=== PATIENT | female | born 1970 | race Caucasian/White ===

== ENCOUNTER 2019-02-07 11:53 | Emergency (ER) | payer MEDICARE, OTHER ==
[~2019-02-07] VITALS: Ht 170.2 cm; Wt 77.3 kg
[2019-02-07] MEDS ORDERED: HYDR-4061 PO (12:17)
[2019-02-07] MEDS ORDERED: VALA500T38 PO (12:17)
[2019-02-07] MEDS ORDERED: TRAZ-220 PO (12:17)
[2019-02-07] MEDS ORDERED: TRAM50TA4 PO (12:17)
[2019-02-07] MEDS ORDERED: DOCU250C91 PO (12:17)
[2019-02-07] MEDS ORDERED: GABA-531 PO (12:17)
[2019-02-07] MEDS ORDERED: BUPR-93 PO (12:17)
[2019-02-07] MEDS ORDERED: LIDO700A15 TD (12:17)
[2019-02-07] MEDS ORDERED: LEVO125 PO (12:17)
[2019-02-07] MEDS ORDERED: KETOROLAC TROMETHAMINE 30 MG/ML VIAL IM ONE (13:00)
[2019-02-07] MEDS ORDERED: KETOROLAC TROMETHAMINE 30 MG/ML VIAL IVP ONE (13:00)
[2019-02-07] MEDS ORDERED: LEVO137T24 PO (13:04)
[2019-02-07] MEDS: METHOCARBAMOL 500 MG TABLET PO ONE ×2 (13:07→13:09)
[2019-02-07 14:05] VITALS: BP 141/86
== END 2019-02-07 14:05 | disposition home or self-care (01) ==
LOC: EMS 11:53
DX: M54.5 Low back pain (principal); R03.0 Elevated blood-pressure reading, without diagnosis of hypertension
CPT/HCPCS: 96372; 99283; J1885

== ENCOUNTER 2019-03-09 11:01 | Emergency (ER) | payer MEDICARE, OTHER ==
[~2019-03-09] VITALS: Ht 170.2 cm; Wt 81.8 kg
[~2019-03-09 11:01] MED LIST: BUPR-93 PO; DOCU250C91 PO; GABA-531 PO; HYDR-4061 PO; LEVO137T24 PO; LIDO700A15 TD; TRAM50TA4 PO; TRAZ-220 PO; VALA500T38 PO
[2019-03-09] MEDS ORDERED: GABAPENTIN 100 MG CAPSULE PO ONE (13:00)
[2019-03-09 15:45] VITALS: BP 108/68
[2019-03-09] MEDS ORDERED: ACETAMINOPHEN 500 MG TABLET PO ONE (16:00)
== END 2019-03-09 16:21 | disposition home or self-care (01) ==
LOC: EMS 11:04
DX: S82.832A Other fracture of upper and lower end of left fibula, initial encounter for closed fracture (principal); E03.9 Hypothyroidism, unspecified; M79.7 Fibromyalgia; G89.29 Other chronic pain; M54.9 Dorsalgia, unspecified; Z79.899 Other long term (current) drug therapy; Z91.010 Allergy to peanuts; Z91.013 Allergy to seafood; X58.XXXA Exposure to other specified factors, initial encounter; Y93.89 Activity, other specified; Y92.89 Other specified places as the place of occurrence of the external cause; Y99.8 Other external cause status
CPT/HCPCS: 29515; 93971